=== PATIENT | male | born 1975 | race Caucasian/White ===

== ENCOUNTER → 2019-03-22 10:46 | Outpatient (CLI) | payer BC, SELFPAY ==
--- NOTE | 2019-03-22 10:55 | RAD_ITS ---
HISTORY: recent injury, pain EXAMINATION/TECHNIQUE: XR Spine Thoracic 3 Views: COMPARISON: None FINDINGS: Mild dorsal kyphosis. Thoracic vertebra normal in height and fracture or suspicious bony lesion. Thoracic disc space heights. Preserved. Intact pedicles and posterior elements. No spondylolisthesis. The paravertebral soft tissues are unremarkable. RAD/Thoracic Spine 3 Views IMPRESSION: 1. No fracture or acute osseous abnormality. 2. Mild dorsal kyphosis. at 0338 Reported and signed by: Jose Alejandro Wiley MD Electronically Signed: Jose Alejandro Wiley, at 3:37 EDT Tel , Service support ,
== END ==
PROVIDERS: Family Provider Internal Medicine; PCP Internal Medicine; Referring Provider Internal Medicine; Visit Provider Internal Medicine
DX: M54.6 Pain in thoracic spine (principal)
CPT/HCPCS: 72072

== ENCOUNTER 2019-04-18 08:30 | Outpatient (RCR) | payer BC, SELFPAY ==
--- NOTE | 2019-04-11 08:13 | HP.PTEVAL ---
Patient's Visit Information ANNE SIMON is a 43 year old M referred to Physical Therapy by Rossi Booker DO with a diagnosis of Throacic back pain/Parasthesia. Date of Evaluation: 04/03/19 Physical Therapist: Lula Long DPT - Visit Plan Frequency: 2x /Week Duration: 3 Weeks Plan: Focus on postural education/correction and scap/core s/s. - Subjective Findings: Numbness in both feet and tips of fingers, started a few weeks ago. Had pain in mid-back but has subsided since (back pain happened around same day). Fell running at home from a [place]ore nest - fell on pavement on chest w/ arm trapped underneath. N/T got worse after fall, can't remember if he he felt some before the fall though. went to for x-rays - thoracic x-ray negative. No other injuries sustained in the fall. No pain currently just N/T. N/T at tips of 4 fingers of both hand, L>R (nothing lower than that). N/T is worse when arms are closer to body or when using it. N/T worse on bottoms of feet & in toes, some in calves, R=L. Mg difficulty walking, amb. stairs, and any falls since [employer]. 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 PMH/MEDS: Chronic headachess - have been better lately. Mg dizziness, HTN, DM, any other singificant concerns. - Objective Posture: RS, FH could not correct w/ v/c. Gait: No deviations noted. HR/TR: WFL w/ UE assist. Finger Dexterity: WNL B. Alt Foot Taps: WNL. SLS: R/L 10 seconds before LOB righted by other LE. Balance: Tandem Stance - 15 seconds w/ min. sway. DTRs: L4 2+ S1 2+. ROM: Ankle/Knee/Hip/Lumbar - WFL. Strength: Ankle/Knee/Hip 5/5 Shoulders 5/5 Core: Fair minus Scap: poor Chucking Machine Set Up Operator Tool: WNL. Sensation: UE - WNL to gross B touch. LE - R side diminished to L side t/o from knee down. Special Tests: Slump (+) B. Flexibility: Hamstring: Mod. Quad: Mod. Palpation: Lumbar/Thoracic/Ribs to gentle PA glides, NTTP at Cervical spine - Goals Goal 1:: Pt. will be I w/ HEP & progression. Goal Time Frame: 4-6 Weeks Goal 2:: Pt. will maintain proper posture t/o tx session to demo improved core strength. Goal Time Frame: 4-6 Weeks Goal 3:: Patient will report no N/T for 1 week - Rehabilitation Potential Physical Therapy Diagnosis: Presents w/ impaired sensation to B hands/feet which leads to difficulty performing ADL's. Rehabilitation Potential: Good - Anticipated Interventions Patient/Client Instruction: Educate patient on: Condition For the Purpose of:: To decrease pain Therapeutic Exercise to Include: Strength training, Endurance training, Balance training, Coordination, Agility training, Body mechanics, Postural training, Dynamic Lumbar Stabilization, Scapular Strength/Stabilization For the Purpose of:: To improve muscle performance and motor function Thank you for the opportunity to evaluate your patient. For Medicare and Medicare HMO plans, please review the plan of care and approve it. It will need to be FAXED BACK to us at [phone] for Medicare purposes. For Medicare only, by signing this I certify the plan of care. Please let me know if there are questions or concerns regarding this plan of care. Physician Signature: Date:
--- NOTE | 2019-05-31 16:36 | HP.PT.NRP ---
HP - Discharge Summary (1) - Patient Information ANNE SIMON was seen in my office for initial evaluation on 04/03/19. The following Plan of Care was established for this patient: Initial Frequency: 2x /Week Initial Duration: 3 Weeks - Anticipated Interventions Patient/Client Instruction: Educate patient on: Condition For the Purpose of:: To decrease pain Therapeutic Exercise to Include: Strength training, Endurance training, Balance training, Coordination, Agility training, Body mechanics, Postural training, Dynamic Lumbar Stabilization, Scapular Strength/Stabilization For the Purpose of:: To improve muscle performance and motor function This patient was last seen in our office 04/18/19. Pertinent comments regarding their Physical therapy will appear below: This patient has not returned to Physical Therapy and is appropriate to return to MD for further follow-up as needed. At this point I will be discontinuing this patient from physical therapy. I would be happy to see this patient again in the future if found appropriate by the physician. Thank you! Katlyn Luis, PT, Cert MDT
== END 2019-04-18 19:00 | disposition home or self-care (01) ==
LOC: PT 08:30
PROVIDERS: Family Provider Internal Medicine; PCP Internal Medicine; Referring Provider Internal Medicine; Visit Provider Internal Medicine
DX: M54.6 Pain in thoracic spine (principal); R20.2 Paresthesia of skin; R29.6 Repeated falls
CPT/HCPCS: 97110; 97140; 97161; 97530

== ENCOUNTER → 2019-07-15 11:05 | Outpatient (CLI) | payer OTHER, SELFPAY ==
--- NOTE | 2019-07-15 11:15 | RAD_ITS ---
HISTORY: Bilateral lower legs no known injury. COMPARISON: None FINDINGS: # of images incl. paperwork: 5 XR Spine Cervical 4 or 5 Views: 5 views of the cervical spine were obtained. All 7 cervical vertebral bodies are identified. No acute cervical spine fracture or subluxation. Normal cervical spine alignment. Odontoid is intact. Degenerative disc disease at the C4-C5 C5-C6 levels manifested by loss of disc height, endplate sclerosis, and small anterior enthesophytes. Uncovertebral hypertrophy at the C4-C5 C5-C6 levels contributes to bilateral C4-C5 and C5-C6 neural foraminal stenosis. This disease may be slightly more severe on the left, and greatest at the C5-C6 level. RAD/Cerv Spine 4 or 5 Views IMPRESSION: No acute cervical spine fracture or subluxation. Degenerative disc disease at C4-C5 C5-C6. Uncovertebral hypertrophy at C5 and C6 contributing to bilateral neural foraminal stenosis at C4-C5 C5-C6, most severe on the left at the C5-C6 level, possibly affecting the left C6 nerve at 0608 Reported and signed by: Andre Rivero MD Electronically Signed: Andre Rivero MD at 6:06 EST Tel , Service support ,
== END ==
PROVIDERS: PCP Internal Medicine; Referring Provider Nurse Practitioner; Visit Provider Nurse Practitioner
DX: M54.2 Cervicalgia (principal)
CPT/HCPCS: 72050

== ENCOUNTER → 2019-10-29 10:21 | Outpatient (CLI) | payer OTHER, SELFPAY ==
--- NOTE | 2019-10-29 10:29 | MRI_ITS ---
STUDY: MRI LUMBAR SPINE WITHOUT CONTRAST REASON FOR EXAM: Male, 43 years old. leg pain, bilat numbness in feet and hands and abdomen TECHNIQUE: Standardized fat and water weighted pulse sequences were obtained in the sagittal and axial planes. COMPARISON: None FINDINGS: Lumbar straightening. No significant scoliosis. Conus medullaris terminates normally at the L1 level. Congenitally small L5 vertebral body (sagittal image 8 series 2). Normal paraspinal muscles. Normal aorta. Normal retroperitoneum. Sacrum intact. T11-12: Schmorl''s node. T12-L1: Tiny Schmorl''s node. Normal disc height, hydration and morphology. Normal bilateral facet joints. Normal central canal and bilateral lateral recesses. Normal bilateral intervertebral neural foramina. L1-2: Normal endplates. Normal disc height, hydration and morphology. Normal bilateral facet joints. Normal central canal and bilateral lateral recesses. Normal bilateral intervertebral neural foramina. L2-3: Normal endplates. Normal disc height, hydration and morphology. Normal bilateral facet joints. Normal central canal and bilateral lateral recesses. Normal bilateral intervertebral neural foramina. L3-4: Normal endplates. Normal disc height, hydration and morphology. Normal bilateral facet joints. Normal central canal and bilateral lateral recesses. Normal bilateral intervertebral neural foramina. L4-5: Normal endplates. Shallow disc bulge. Normal bilateral facet joints. Normal central canal and bilateral lateral recesses. Bilateral neural foraminal narrowing with contact of the exiting nerve roots. Minimal grade 1 spondylolisthesis. L5-S1: Normal endplates. Normal disc height, hydration and morphology. Normal bilateral facet joints. Normal central canal and bilateral lateral recesses. Bilateral neural foraminal narrowing without impingement. Mild central posterior longitudinal ligamentous thickening. MRI/Spine Lumbar (Routine) IMPRESSION: L4-5 intervertebral disc disease without central canal narrowing L4-5, L5-S1 neural foraminal narrowing with early contact of the exiting L4 nerve roots Lumbar straightening with tiny Schmorl''s nodes and L4-5 minimal grade 1 spondylolisthesis Congenitally small L5 vertebral body Electronically Signed: Brandon Freedman DO at 11:26 EDT Tel , Service support ,
== END ==
PROVIDERS: PCP Internal Medicine; Referring Provider Orthopaedic Surgery; Visit Provider Orthopaedic Surgery
DX: M79.661 Pain in right lower leg (principal); M79.605 Pain in left leg; R20.2 Paresthesia of skin
CPT/HCPCS: 72148

== ENCOUNTER → 2019-11-19 09:23 | Outpatient (CLI) | payer OTHER, SELFPAY ==
--- NOTE | 2019-11-19 10:00 | MRI_ITS ---
STUDY: MRI BRAIN WITHOUT CONTRAST REASON FOR EXAM: Male, 44 years old. pain, paresthesias, bilat numbness in feet and hands and abdomen TECHNIQUE: Standardized multiplanar fat and water weighted pulse sequences were obtained. COMPARISON: 09/19/2014 FINDINGS: Normal size of the ventricles and extra-axial spaces for the patient''s age. There has been interval development of multiple punctate foci of T2 hyperintensity throughout the brain. Findings are concerning for evolving demyelinating disease. All lesions are less than 5 mm in size. Lesions are approximately 9 in number. They are seen in the left centrum semiovale, the right rosa radiata, the left periatrial white matter, the right periatrial white matter, the left cerebral peduncle, the bilateral brachium pontis, and the left cerebellar hemisphere (3 lesions). None are associated with restricted diffusion. Consider postcontrast images to further characterize lesion activity if clinically indicated. Normal bilateral basal ganglia. Normal thalami. There is no extra-axial fluid accumulation. Normal flow voids within the major intracranial circulation suggesting patency by spin echo criteria. Normal sella turcica, pituitary gland, infundibular stalk, optic chiasm and hypothalamus. Normal tectal plate and pineal gland. Normal basal cisterns. Normal bilateral temporal bones. Normal bilateral internal auditory canals. No demonstrated orbital abnormality, within the constraints of a routine brain study. Normal visualized paranasal sinuses. Normal calvarium and skull base. Normal visualized soft tissue structures. Normal visualized upper cervical spine. MRI/Brain without Contrast IMPRESSION: Interval development of approximately 9 punctate T2 hyperintense foci in the brain parenchyma as listed above. Findings are concerning for evolving demyelinating disease. None of the lesions are associated with restricted diffusion. Consider postcontrast images to further characterize lesion activity if clinically indicated. Electronically Signed: Russ Jacinto MD at 12:06 EDT Tel , Service support ,
== END ==
PROVIDERS: PCP Internal Medicine; Referring Provider Orthopaedic Surgery; Visit Provider Orthopaedic Surgery
DX: M79.661 Pain in right lower leg (principal); R20.2 Paresthesia of skin
CPT/HCPCS: 70551

== ENCOUNTER → 2019-11-29 14:28 | Outpatient (CLI) | payer OTHER, SELFPAY ==
[2019-11-29 15:36] LABS: Vitamin B12 355 pg/mL (211-911)
[2019-11-29 15:41] LABS: Thyroid Stim Hormone (TSH) 0.87 uIU/mL (0.358-3.74)
[2019-12-05 04:31] LABS: Rapid Plasmin Reagin (RPR) NONREACTIVE (NONREACTIVE)
[2019-12-05 16:08] LABS: Immunoglobulin A 343 mg/dL (90-386); Immunoglobulin G 970 mg/dL (603-1613); Immunoglobulin M 81 mg/dL (20-172); Lyme IgG P18 Ab Present (.); Lyme IgG P23 Ab Absent (.); Lyme IgG P28 Ab Absent (.); Lyme IgG P30 Ab Absent (.); Lyme IgG P39 Ab Absent (.); Lyme IgG P41 Ab Absent (.); Lyme IgG P45 Ab Absent (.); Lyme IgG P58 Ab Absent (.); Lyme IgG P66 Ab Absent (.); Lyme IgG P93 Ab Absent (.); Lyme IgM P23 Ab Absent (.); Lyme IgM P39 Ab Absent (.); Lyme IgM P41 Ab Absent (.)
[2019-12-06 14:00] LABS: Anti-Cardiolipin Ab, IgA, Qn < 9 APL U/mL (0-11); Anti-Cardiolipin Ab, IgG, Qn < 9 GPL U/mL (0-14); Anti-Cardiolipin Ab, IgM, Qn < 9 MPL U/mL (0-12); Copper, Serum or Plasma 79 ug/dL (72-166); Lyme IgG WB Interpretation Negative (.); Lyme IgM WB Interpretation Negative (.)
[2019-12-08 23:48] LABS: Methylmalonic Acid Bld 158; SJOGREN'S Anti-SS-A test < 0.2; SJOGREN'S Anti-SS-B test < 0.2
== END ==
PROVIDERS: PCP Internal Medicine
DX: R20.2 Paresthesia of skin (principal)
CPT/HCPCS: 36415; 82525; 82607; 82784; 83921; 84443; 86147; 86235; 86334; 86592; 86617

== ENCOUNTER → 2019-12-11 17:23 | Outpatient (CLI) | payer OTHER, SELFPAY ==
--- NOTE | 2019-12-11 17:38 | MRI_ITS ---
STUDY: MRI CERVICAL SPINE WITH AND WITHOUT CONTRAST REASON FOR EXAM: Male, 44 years old. numbness, tingling, ms -- bilat numbness feet, hands, abdomen since 03/2019 TECHNIQUE: Standardized fat and water weighted pulse sequences were obtained in the sagittal and axial following administration of IV dotarem 18ml. COMPARISON: Radiographs 07/15/2019 FINDINGS: Normal foramen magnum and brainstem-cervical cord junction. Normal craniovertebral junction. Normal anterior atlantoaxial articulation. Normal odontoid process. Normal cervical lordosis. Normal vertebral bodies and posterior osseous elements. C2-3: Normal endplates. Normal disc height, signal and morphology. Normal central canal and intervertebral neural foramina. C3-4: Disc osteophyte complex without compressive sequelae. C4-5: Disc osteophyte complex with severe left foraminal stenosis. C5-6: Disc osteophyte complex with mild central canal and severe left foraminal stenoses. C6-7: Normal endplates. Normal disc height, signal and morphology. Normal central canal and intervertebral neural foramina. C7-T1: Normal endplates. Normal disc height, signal and morphology. Normal central canal and intervertebral neural foramina. Multiple T2 hyperintense cord lesions are present compatible with demyelinating plaques. These are seen in the central ventral cord at the C2-3 level, the central dorsal cord at the C3-4 level, a left lateral cord at the C4-5 level, and the right lateral cord at the C6-7 level. The left lateral cord lesion at the C4-5 level is associated with abnormal postcontrast enhancement, suggesting an active lesion. The other lesions are not associated with abnormal enhancement. There is mild cord expansion from the C2-3 level to the C3-4 level. Normal visualized soft tissue structures. MRI/Spine Cervical W/WO Contrast IMPRESSION: Multiple T2 hyperintense cord lesions compatible with demyelinating disease. A single left lateral cord lesion at the C4-5 level is associated with abnormal postcontrast enhancement. There is mild cord expansion from the C2-3 level to the C3-4 level. Electronically Signed: Russ Jacinto MD at 20:11 EDT Tel , Service support ,
--- NOTE | 2019-12-11 17:38 | MRI_ITS ---
STUDY: MRI BRAIN WITH AND WITHOUT CONTRAST REASON FOR EXAM: Male, 44 years old. numbness, tingling, ms -- bilat numbness feet, hands, abdomen since 03/2019 TECHNIQUE: Standardized multiplanar fat and water weighted pulse sequences were obtained. IV dotarem 18ml was administered for the contrast portion of the examination. COMPARISON: 11/19/2019 FINDINGS: Normal size of the ventricles and extra-axial spaces for the patient''s age. Multiple focal T2 hyperintensities are present in the brain. These are stable in size and number compared to prior study. Foci are identified in the left cerebellum, right brachium pontis, the left cerebral peduncle, and the bilateral deep cerebral white matter. None of the foci are associated with abnormal enhancement or restricted diffusion. Normal bilateral basal ganglia. Normal thalami. There is no extra-axial fluid accumulation. Normal flow voids within the major intracranial circulation suggesting patency by spin echo criteria. Normal venous enhancement. There is no enhancing intra-axial or extra-axial abnormality. Normal sella turcica, pituitary gland, infundibular stalk, optic chiasm and hypothalamus. Normal tectal plate and pineal gland. Normal basal cisterns. Normal bilateral temporal bones. Normal bilateral internal auditory canals. No demonstrated orbital abnormality, within the constraints of a routine brain study. Normal visualized paranasal sinuses. Normal calvarium and skull base. Normal visualized soft tissue structures. Normal visualized upper cervical spine. MRI/Brain W/WO Contrast IMPRESSION: Stable white matter disease. No new lesion enhancement or restricted diffusion is seen. Electronically Signed: Russ Jacinto MD at 19:49 EDT Tel , Service support ,
== END ==
PROVIDERS: PCP Internal Medicine
DX: R20.8 Other disturbances of skin sensation (principal); R20.2 Paresthesia of skin
CPT/HCPCS: 70553; 72156; A9575